=== PATIENT | female | born 1965 | race Caucasian/White ===

== ENCOUNTER 2017-12-23 18:12 | Emergency (ER) | payer OTHER ==
[~2017-12-23] VITALS: Ht 160 cm; Wt 64.2 kg
[~2017-12-23 18:12] MED LIST: DIPH25CA65 PO
[2017-12-23 18:16] VITALS: TEMP 36.5; Ht 160 cm; Wt 64.2 kg
[2017-12-23] MEDS ORDERED: PROPARACAINE HCL 0.5% OP SOLN 15 ML BTL OP STA (18:26)
--- NOTE | 2017-12-23 18:31 | EMERGENCY ROOM VISIT NOTE ---
ED Visit Note First contact with patient: 18:20 CHIEF COMPLAINT: Left eye irritation and watering HISTORY OF PRESENT ILLNESS: This 52-year-old female patient presents to the emergency department, ambulatory, complaining of pain and foreign body sensation in the left eye. She states symptoms began approximately 3 weeks ago. She thought she may have gotten something in her eye, but was uncertain. She states she tried OTC eye wash and rinse without improvement in her symptoms. She then used an ymuo-yzd-iwopqpy medication for styes, and states her symptoms improved for approximately 1 week. She states now, the symptoms have returned. She does have foreign body sensation with mild injection and tearing of the left eye. She does feel that the left eyelid is swollen. She did report noticing a stye at one point of the upper eyelid. She states her vision is not affected, however it feels blurry due to the tearing. She does not have an winderman, and has not seen a primary care provider regarding the problem. There has been a constant moderate pain and irritation, redness and tearing in the eye. The patient does not wear contacts. The patient rates the pain as 5/10. The patient has not had previous injuries to this eye. Tetanus shot is up to date. REVIEW OF SYSTEMS: A 6 system review of systems was completed with positives and pertinent negatives listed in the HPI. ALLERGIES: None MEDICATIONS: None PMH: None SOCIAL HISTORY: The patient lives locally with family. She denies drug and alcohol use. She admits to smoking one half pack of cigarettes per day. PHYSICAL EXAM: Vital Signs: Reviewed Nurse's notes, vital signs stable. Visual acuity 20/40 bilaterally. GENERAL: This is a 52-year-old white female, in no acute distress, but who is uncomfortable from the eye problem. Well-developed well-nourished. EYES: The pupils are equal round and reactive to light and accommodation. EOMs are full and without tenderness. There is a erythematous, irritated hordeolum on the lower lid in the middle of the lid. There is watery discharge from the left eye which is injected. There is no abrasion visible on the cornea. There is no foreign body visible under the eyelid after lid eversion. No foreign body was seen embedded in the cornea under slit lamp exam. The cornea was clear and no hyphema was seen. Fluorescein uptake was observed with ultraviolet light and significant for corneal abrasion or increased uptake of the eye. EMERGENCY DEPARTMENT COURSE: I examined the patient. Alcaine 2 drops were placed in the patient's left eye. A slit lamp exam was performed as above. No foreign body noted on examination. There is a stye-like lesion in the mid-lower lid with no active drainage. I suspect this is the cause of the irritation and FB sensation. the patient will be started on erythromycin antibiotic ointment and was provided the medication here in the ED. Discharge instructions reviewed. The patient was discharged home in good condition. I attest that I have personally reviewed the patient's current medication list. Patient was found to have normal blood pressure on screening and does not require follow-up. Etiologies such as hordeolum, blepharitis, conjunctivitis, corneal abrasion, uveitis, glaucoma, periorbital cellulitis, orbital cellulitis, abscess, trauma, as well as others were entertained. DIAGNOSIS: Stye with conjunctival irritation Current/Historical Medications No Active Prescriptions or Reported Meds Allergies Coded Allergies: No Known Allergies (Verified , 01/30/11) Vital Signs Date Time Temp Pulse Resp B/P (MAP) Pulse Ox O2 Delivery O2 Flow Rate FiO2 12/23/17 18:16 36.5 82 20 132/78 95 Room Air Departure Information Impression Primary Impression: Hordeolum Additional Impression: Conjunctival irritation Dispostion Home / Self-Care Condition GOOD Prescriptions No Active Prescriptions or Reported Meds Referrals No Doctor, Assigned (PCP) Corwin Haddad D.O. Patient Instructions ED Sandra, [facility] Additional Instructions You have been treated in the Emergency Department today for your a stye with conjunctival irritation of the left eye. You have been prescribed Erythromycin Opthalmic ointment. This is an antibiotic ointment which will help prevent an infection from developing in your affected eye. You should apply a 1 cm ribbon of the ointment to the lower part of the affected eye up to 6 times per day for the next 7-10 days. For pain control, you can use the following fpun-han-dqyrmtl medicines (if >12 yo): Ibuprofen(Motrin, Advil) may be used for fever or pain. Use 600mg every six hours as needed. Take with food. Avoid using more than 2400mg in a 24 hour period. Do not use 2400mg per day for more than three consecutive days without physician direction. Prolonged inappropriate use can lead to stomach upset or ulcers. (AND/OR) Acetaminophen(Tylenol) may be used for fever or pain. Use 1000mg every six hours as needed. Avoid using more than 3000mg in a 24 hour period. *Alternate these medications every 3-4 hours for increased pain control. You should relax in a quiet, dark place for the rest of the day. You should wear sunglasses while outside for the next few days until your eyes are not as sensitive to the light. You should schedule a follow-up appointment in 2-3 days with your Primary Care Provider or established Eye Doctor (Passenger Representative) for further evaluation and treatment of your hordeolum and irritation. You have been provided the contact information for a local winderman. Return to the Emergency Department if your current symptoms worsen despite treatment course outlined above, or if you develop any of the following symptoms : intractable pain, visual disturbances, loss of vision, increased redness, swelling, drainage, or if you develop a fever. Problem Qualifiers Primary Impression: Hordeolum Hordeolum type: externum Laterality: left Eyelid: lower Qualified Codes: H00.015 - Hordeolum externum left lower eyelid
[2017-12-23] MEDS ORDERED: ERYTHROMYCIN OP OINT 1 GM PKT OP STA (18:51)
[2017-12-23 19:13] VITALS: BP 130/74; PULSE 78; O2SAT 96
--- NOTE | 2017-12-24 12:14 | Pharmacy Progress Note ---
ED Pharmacist Progress Note Date of Service: Dec 24, 2017. Patient had called requesting Rx for Erythromycin Ophthalmic Ointment. She was discharged from the ED with a 1gm packet which likely was not enough to complete the intended 7-10 days of therapy instructed by Pamella Go. Reviewed with Dr Rodrigez. Rx for E-mycin Ophthalmic Oint 3.5gm tube, apply 1cm to lower part of affected eye up to 6 x daily x 7-10 days total called to [facility] [place] [phone] per patient's request.
== END 2017-12-23 19:14 | disposition home or self-care (01) ==
LOC: C.EDB 18:13 → C.EDD 19:14
DX: H00.015 Hordeolum externum left lower eyelid (principal); F17.210 Nicotine dependence, cigarettes, uncomplicated

== ENCOUNTER 2021-10-15 09:37 | Inpatient (IN) ==
--- NOTE | 2021-10-15 10:31 | XRay Report ---
XR chest 1V portable HISTORY: 55 years-old Female SOB acute shortness of breath with fever. COVID Positive. COMPARISON: Chest radiograph 10/13/2021 TECHNIQUE: Portable AP view of the chest FINDINGS: Cardiomediastinal and hilar silhouettes are within normal limits. The lungs are mildly hyperinflated. No pneumothorax, pleural effusion, or overt pulmonary edema. Minimal right lung base opacities are n ew from prior. Bones of the chest appear grossly intact. IMPRESSION: Minimal right lung base opacities are suggestive of atelectasis versus developing pneumon itis. ACT 112: Negative or not required by law. The above report was generated using voice recognition software. It may contain grammatical, syntax o r spelling errors. Electronically signed by: Malick Montaño M.D. 10/15/2021 10:30 AM
[2021-10-15] MEDS ORDERED: SODIUM CHLORIDE 0.9% 1000ML 500 ML IV ONE (10:54)
[2021-10-15] MEDS ORDERED: ALBUT/IPRATROP 3MG/0.5MG NEB 3 ML VIAL INH STA (10:54)
[2021-10-15] MEDS ORDERED: dexAMETHasone**PF** 10 MG/ML VIAL IV ONE (10:54)
--- NOTE | 2021-10-15 11:00 | Emergency Department Note ---
Impression & Plan Hypoxia, SOB (shortness of breath), Pneumonia, COVID-19 ED Provider Note NAME: DARIAN FERREIRA AGE: 55 SEX: F : 1965 ARRIVES VIA: Walk-In INFORMANT: [Patient] ED PROVIDER(S): [Cali Boyd MD] CHIEF COMPLAINT: Short of breath HISTORY OF PRESENT ILLNESS: The patient is a 55-year-old female who presents to the ER with dyspnea. The patient began feeling ill with flulike symptoms about 8 days ago. She tested positive for COVID-19 on the . The patient was seen in this ED 2 days ago and received monoclonal antibodies. She was not hypoxic and was discharged. The patient presented today complaining of increasing shortness of breath in the last 48 hours. She felt herself breathing rapidly. She felt awful in general. The patient is coughing, her fever has resolved, she still has some chills. Initially, earlier in this illness, the patient had a sore throat, fever, chills, body aches and a cough. She lost her taste and smell. The patient is not vaccinated for COVID-19 or influenza. Her is currently hospitalized with COVID-19. REVIEW OF SYSTEMS: See HPI for pertinent positives and negatives. A total of ten systems were reviewed and were otherwise negative. PMHx/PSHx: See Below SOCIAL HISTORY: See Below. PHYSICAL EXAM: GENERAL: Patient is in no acute distress. HEENT: No acute trauma, normocephalic atraumatic, mucous membranes moist, no nasal congestion, no scleral icterus. NECK: No stridor, no adenopathy, no meningismus, trachea is midline. LUNGS: Diminished breath sounds bilaterally, no wheezing or rhonchi. Breath sounds equal. HEART: Mildly tachycardic, regular rhythm, no murmurs. ABDOMEN: Soft, nontender, bowel sounds positive, no hernias, no peritonitis. EXTREMITIES: No cyanosis or edema, full range of motion of all the joints without pain or difficulty, no signs for acute trauma. NEUROLOGIC: Oriented x 3, no acute motor or sensory deficits, no focal weakness. SKIN: No rash, no jaundice, no diaphoresis. DIFFERENTIAL DIAGNOSIS: Reactive airway disease, pneumonia, pneumothorax, COVID-19, influenza, pneumonia, exacerbation of COPD, CHF, infection, cardiac ischemia, pulmonary embolism, bronchitis, musculoskeletal, gastrointestinal, as well as other pathologies. EMERGENCY DEPARTMENT COURSE/PROCEDURES: ECG: Indication was shortness of breath. The ECG shows a normal sinus rhythm with a rate of 89, there is no ST ovation, no PVCs. The QTc is 420. Continuous Cardiac Monitoring: An order was placed for continuous cardiac monitoring. The monitor shows a rate of 109 with sinus tachycardia. Critical Care Note: I have personally spent 51 minutes of critical care time in the direct management of this patient. This includes bedside care, interpretation of diagnostic studies, and testing, discussion with consultants, patient, and family members, and other required patient management activities. This 51 minutes is in excess of all separately billable procedures. MEDICAL DECISION MAKING: There is a moderate leukocytosis of 18,000, this could be consistent with the stress of her presentation or infection. There is no anemia. There is a normal platelet count. No coagulopathy. No significant electrolyte abnormality or kidney failure. No concerning liver enzyme elevation. C-reactive protein was elevated. Procalcitonin level was normal. ECG shows a normal sinus rhythm. Cardiac enzyme testing x1 is not consistent with acute cardiac injury. Chest x- ray does show what appears to be a right lower lung pneumonia. No pneumothorax, no CHF. On exam, the patient was hypoxic without O2 supplementation. The patient received IV saline for hydration. She was given IV Decadron. The patient received a DuoNeb. The patient presents hypoxic and short of breath. She has Covid pneumonia. She also has a history of smoking and likely has a component of COPD. Patient is improved with oxygen supplementation, a DuoNeb and the steroid inj ection. Given the hypoxia, a hospital stay is warranted. I did speak with the patient and case management. The on-call hospitalist was consulted. Past Med/Surg History Medical History No pertinent past medical history Surgical History History of tubal ligation Family History Father Diabetes Hypertension Cancer Mother Hypertension Grandmother (Maternal) Breast cancer Denies family history of Ovarian cancer Prostate cancer Myocardial infarction Colorectal cancer Social History Smoking Status: Former smoker packs per day: 1.5; Smoking End Date: 10/06/21; Hx Alcohol Use: No Hx Substance Use: No Preferred Language: Lebanese Chefs Required: No Beliefs That Will Affect Care: None marital status: Current Living Situation: Spouse current occupational status: employed Other Information That Helps Us Care for You: No Feels Safe at Home: Yes Safety Concerns: Feels Safe At This Time Dental Care, Regularly: No Assistive Devices: Denture - Upper, Denture - Lower, Glasses, Oxygen - at Night and Oxygen - Continuous Assistive Devices Comment: O2 is acute Allergies Allergies Allergy/AdvReac Type Severity Reaction Status Date / Time No Known Allergies Allergy Unknown Verified 10/15/21 11:04 Home Meds Home Medications Medication Instructions Recorded Confirmed No Known Home Medications 10/15/21 10/15/21 Results & Data (ED) Vital Signs Vital Signs - 24 hr 10/15/21 09:56 10/15/21 10:38 10/15/21 10:40 Temperature 37.4 C Temperature Source Temporal Artery Scan Pulse Rate 109 H 87 86 Pulse Rate [Finger] Pulse Rate from SpO2 Sensor 87 86 Pulse Rhythm Regular Pulse Strength Normal Respiratory Rate 24 25 H 25 H Respiratory Effort / Characteristics Spontaneous Accessory Muscle Use Short of Breath SOB on Exertion Respiratory Depth Normal Respiratory Pattern Tachypnea Blood Pressure 129/88 Blood Pressure [Left Arm] Blood Pressure Mean 101 Blood Pressure Mean [Left Arm] Blood Pressure Position Sitting Pulse Oximetry 89 L 97 95 Oxygen Delivery Method Room Air Nasal Cannula Nasal Cannula Oxygen Flow Rate 3 3 Sepsis Recent Fever Within 48 Hours No Sepsis New/Unexplained Change in Mental Status No Sepsis Action Taken by Nursing No Action Required 10/15/21 10:50 10/15/21 11:00 10/15/21 11:01 Temperature Temperature Source Pulse Rate 87 82 Pulse Rate [Finger] Pulse Rate from SpO2 Sensor 89 84 Pulse Rhythm Pulse Strength Respiratory Rate 20 20 Respiratory Effort / Characteristics Respiratory Depth Respiratory Pattern Blood Pressure 126/75 Blood Pressure [Left Arm] Blood Pressure Mean 92 Blood Pressure Mean [Left Arm] Blood Pressure Position Pulse Oximetry 95 97 96 Oxygen Delivery Method Nasal Cannula Nasal Cannula Nasal Cannula Oxygen Flow Rate 3 3 3 Sepsis Recent Fever Within 48 Hours Sepsis New/Unexplained Change in Mental Status Sepsis Action Taken by Nursing 10/15/21 11:02 10/15/21 11:10 10/15/21 11:20 Temperature Temperature Source Pulse Rate 92 H 85 Pulse Rate [Finger] Pulse Rate from SpO2 Sensor 95 H 85 Pulse Rhythm Pulse Strength Respiratory Rate 29 H 21 Respiratory Effort / Characteristics Respiratory Depth Respiratory Pattern Blood Pressure Blood Pressure [Left Arm] Blood Pressure Mean Blood Pressure Mean [Left Arm] Blood Pressure Position Pulse Oximetry 97 95 96 Oxygen Delivery Method Nasal Cannula Nasal Cannula Oxygen Flow Rate 3 2 Sepsis Recent Fever Within 48 Hours Sepsis New/Unexplained Change in Mental Status Sepsis Action Taken by Nursing 10/15/21 11:30 10/15/21 11:34 10/15/21 11:40 Temperature Temperature Source Pulse Rate 87 100 H Pulse Rate [Finger] 82 Pulse Rate from SpO2 Sensor 87 103 H Pulse Rhythm Pulse Strength Respiratory Rate 27 H 18 17 Respiratory Effort / Characteristics Respiratory Depth Respiratory Pattern Blood Pressure 131/79 Blood Pressure [Left Arm] 131/79 Blood Pressure Mean 96 Blood Pressure Mean [Left Arm] 96 Blood Pressure Position Pulse Oximetry 95 97 96 Oxygen Delivery Method Nasal Cannula Nebulizer Nasal Cannula Oxygen Flow Rate 2 2 Sepsis Recent Fever Within 48 Hours Sepsis New/Unexplained Change in Mental Status Sepsis Action Taken by Nursing 10/15/21 11:50 10/15/21 12:00 10/15/21 12:10 Temperature Temperature Source Pulse Rate 99 H 90 87 Pulse Rate [Finger] Pulse Rate from SpO2 Sensor 98 H 90 87 Pulse Rhythm Pulse Strength Respiratory Rate 15 24 23 Respiratory Effort / Characteristics Respiratory Depth Respiratory Pattern Blood Pressure Blood Pressure [Left Arm] Blood Pressure Mean Blood Pressure Mean [Left Arm] Blood Pressure Position Pulse Oximetry 90 96 96 Oxygen Delivery Method Nasal Cannula Nasal Cannula Nasal Cannula Oxygen Flow Rate 2 2 2 Sepsis Recent Fever Within 48 Hours Sepsis New/Unexplained Change in Mental Status Sepsis Action Taken by Nursing 10/15/21 12:20 10/15/21 12:30 10/15/21 12:40 Temperature Temperature Source Pulse Rate 93 H 98 H 92 H Pulse Rate [Finger] Pulse Rate from SpO2 Sensor 95 H 95 H 92 H Pulse Rhythm Pulse Strength Respiratory Rate 30 H 24 16 Respiratory Effort / Characteristics Respiratory Depth Respiratory Pattern Blood Pressure 134/80 Blood Pressure [Left Arm] Blood Pressure Mean 98 Blood Pressure Mean [Left Arm] Blood Pressure Position Pulse Oximetry 95 94 97 Oxygen Delivery Method Nasal Cannula Nasal Cannula Nasal Cannula Oxygen Flow Rate 2 2 2 Sepsis Recent Fever Within 48 Hours Sepsis New/Unexplained Change in Mental Status Sepsis Action Taken by Nursing 10/15/21 12:50 10/15/21 13:00 10/15/21 13:10 Temperature Temperature Source Pulse Rate 86 110 H 90 Pulse Rate [Finger] Pulse Rate from SpO2 Sensor 87 89 Pulse Rhythm Pulse Strength Respiratory Rate 26 H 31 H 28 H Respiratory Effort / Characteristics Respiratory Depth Respiratory Pattern Blood Pressure Blood Pressure [Left Arm] Blood Pressure Mean Blood Pressure Mean [Left Arm] Blood Pressure Position Pulse Oximetry 94 92 Oxygen Delivery Method Nasal Cannula Nasal Cannula Nasal Cannula Oxygen Flow Rate 2 2 2 Sepsis Recent Fever Within 48 Hours Sepsis New/Unexplained Change in Mental Status Sepsis Action Taken by Nursing 10/15/21 13:20 Temperature Temperature Source Pulse Rate 92 H Pulse Rate [Finger] Pulse Rate from SpO2 Sensor 92 H Pulse Rhythm Pulse Strength Respiratory Rate 13 Respiratory Effort / Characteristics Respiratory Depth Respiratory Pattern Blood Pressure Blood Pressure [Left Arm] Blood Pressure Mean Blood Pressure Mean [Left Arm] Blood Pressure Position Pulse Oximetry 93 Oxygen Delivery Method Nasal Cannula Oxygen Flow Rate 2 Sepsis Recent Fever Within 48 Hours Sepsis New/Unexplained Change in Mental Status Sepsis Action Taken by Group Home Medications Current Medication List: was personally reviewed by me Laboratory Data Attestation: I reviewed the patient's lab results. Result diagrams: 10/15/21 11:30 10/15/21 11:30 Lab Results 10/15/21 10/15/21 10/15/21 Range/Units 11:30 11:30 11:30 WBC 18.77 H (4.8-10.8) K/uL RBC 4.75 (4.2-5.4) M/uL Hgb 13.7 (12.0-16.0) g/dL Hct 40.5 (37-47) % MCV 85.3 (80-100) fL MCH 28.8 (25-34) pg MCHC 33.8 (32-36) g/dL RDW Std Deviation 42.1 (36.4-46.3) fL RDW Coeff of Aly 13.6 (11.5-14.5) % Plt Count 378 (130-400) K/uL MPV 9.1 (7.4-10.4) fL Immature Gran % (Auto) 0.6 % Neut % (Auto) 80.7 % Lymph % (Auto) 10.7 % Posey % (Auto) 7.8 % Eos % (Auto) 0.0 % Baso % (Auto) 0.2 % Neut # (Auto) 15.17 H (1.4-6.5) K/uL Lymph # (Auto) 2.00 (1.2-3.4) K/uL Posey # (Auto) 1.46 H (0.11-0.59) K/uL Eos # (Auto) 0.00 (0-0.5) K/uL Baso # (Auto) 0.03 (0-0.2) K/uL Immature Gran # (Auto) 0.11 H (0.00-0.02) K/uL PT 10.9 (9.0-12.0) Seconds INR 1.1 (0.9-1.1) APTT 26.4 (21.0-31.0) Seconds PTT Ratio 1.0 Sodium 135 L (136-145) mmol/L Potassium 4.1 (3.5-5.1) mmol/L Chloride 103 (98-107) mmol/L Carbon Dioxide 25 (21-32) mmol/L Anion Gap 7.0 (3-11) BUN 12 (7-18) mg/dl Creatinine 0.64 (0.6-1.2) mg/dl Est Cr Clr Drug Dosing 81.2 ml/min Est GFR ( Amer) 115.6 ml/min Est GFR (Non-Af Amer) 99.8 ml/min BUN/Creatinine Ratio 19.4 (10-20) Glucose 100 H (70-99) mg/dl Calcium 9.2 (8.5-10.1) mg/dl Magnesium 2.2 (1.8-2.4) mg/dl Total Bilirubin 0.3 (0.2-1) mg/dl AST 16 (15-37) U/L ALT 17 (12-78) Alkaline Phosphatase 84 (45-117) U/L Troponin I < 0.015 (0-0.045) ng/ml C-Reactive Protein 14.50 H (0-0.29) mg/dl Total Protein 7.8 (6.4-8.2) gm/dl Albumin 3.0 L (3.4-5.0) gm/dl Globulin 4.8 H (2.5-4.0) gm/dl Albumin/Globulin Ratio 0.6 L (0.9-2) Procalcitonin (0-0.5) ng/ml 01/01/22 Range/Units 11:30 WBC (4.8-10.8) K/uL RBC (4.2-5.4) M/uL Hgb (12.0-16.0) g/dL Hct (37-47) % MCV (80-100) fL MCH (25-34) pg MCHC (32-36) g/dL RDW Std Deviation (36.4-46.3) fL RDW Coeff of Aly (11.5-14.5) % Plt Count (130-400) K/uL MPV (7.4-10.4) fL Immature Gran % (Auto) % Neut % (Auto) % Lymph % (Auto) % Posey % (Auto) % Eos % (Auto) % Baso % (Auto) % Neut # (Auto) (1.4-6.5) K/uL Lymph # (Auto) (1.2-3.4) K/uL Posey # (Auto) (0.11-0.59) K/uL Eos # (Auto) (0-0.5) K/uL Baso # (Auto) (0-0.2) K/uL Immature Gran # (Auto) (0.00-0.02) K/uL PT (9.0-12.0) Seconds INR (0.9-1.1) APTT (21.0-31.0) Seconds PTT Ratio Sodium (136-145) mmol/L Potassium (3.5-5.1) mmol/L Chloride (98-107) mmol/L Carbon Dioxide (21-32) mmol/L Anion Gap (3-11) BUN (7-18) mg/dl Creatinine (0.6-1.2) mg/dl Est Cr Clr Drug Dosing ml/min Est GFR ( Amer) ml/min Est GFR (Non-Af Amer) ml/min BUN/Creatinine Ratio (10-20) Glucose (70-99) mg/dl Calcium (8.5-10.1) mg/dl Magnesium (1.8-2.4) mg/dl Total Bilirubin (0.2-1) mg/dl AST (15-37) U/L ALT (12-78) Alkaline Phosphatase (45-117) U/L Troponin I (0-0.045) ng/ml C-Reactive Protein (0-0.29) mg/dl Total Protein (6.4-8.2) gm/dl Albumin (3.4-5.0) gm/dl Globulin (2.5-4.0) gm/dl Albumin/Globulin Ratio (0.9-2) Procalcitonin 0.16 (0-0.5) ng/ml Administered Medications Discontinued Medications Albuterol (Albut/Ipratrop 3mg/0.5mg Neb 3 Ml Vial) 3 ml INH NOW STA Stop: 10/15/21 10:55 Last Admin: 10/15/21 11:29 Dose: 3 ml Documented by: [id number] Dexamethasone Sodium Phosphate (DexamethasonePf 10 Mg/Ml Vial) 6 mg IV NOW ONE Stop: 10/15/21 10:55 Last Admin: 10/15/21 11:29 Dose: 6 mg Documented by: [id number] Sodium Chloride (Nss 1000ml) 500 mls @ 999 mls/hr IV .Q31M ONE Stop: 10/15/21 11:24 Last Infusion: 10/15/21 12:30 Dose: 0 mls/hr Documented by: [id number] Admin: 10/15/21 11:29 Dose: 999 mls/hr Documented by: [id number] Azithromycin 500 mg/ Dextrose 255 mls @ 125 mls/hr IV 1330 ONE Stop: 10/15/21 15:32 Last Infusion: 10/15/21 16:38 Dose: 0 mls/hr Documented by: [id number] Admin: 10/15/21 14:28 Dose: 125 mls/hr Documented by: [id number] Remdesivir 200 mg/ Sodium (Chloride) 250 mls @ 125 mls/hr IV ONE STA; Protocol Stop: 10/15/21 15:25 Last Admin: 10/15/21 16:38 Dose: 125 mls/hr Documented by: [id number] Imaging Data Radiologist's Impression: Chest X-Ray 10/15/21 10:02 XR chest 1V portable HISTORY: 55 years-old Female SOB acute shortness of breath with fever. COVID Positive. COMPARISON: Chest radiograph 10/13/2021 TECHNIQUE: Portable AP view of the chest FINDINGS: Cardiomediastinal and hilar silhouettes are within normal limits. The lungs are mildly hyperinflated. No pneumothorax, pleural effusion, or overt pulmonary edema. Minimal right lung base opacities are new from prior. Bones of the chest appear grossly intact. IMPRESSION: Minimal right lung base opacities are suggestive of atelectasis versus developing pneumonitis. ACT 112: Negative or not required by law. The above report was generated using voice recognition software. It may contain grammatical, syntax or spelling errors. Electronically signed by: Malick Montaño M.D. 10/15/2021 10:30 AM Discharge Plan Visit Data Chief Complaint: Shortness of Breath/Dyspnea Stated Complaint: TROUBLE BREATHING,LIPS DRY,SX WORSENING,CHILLS ED Provider: Cali Boyd Discharge Problem: Hypoxia, SOB (shortness of breath), Pneumonia, COVID-19 Patient Disposition: Admitted As Inpatient Condition: Fair Discharge Instructions Interventions: ED Discharge Assessment Last Done: 10/15/21 17:06
[2021-10-15 11:42] LABS: Basophils # (auto) 0.03 K/uL (0-0.2); Basophils % (auto) 0.2 %; Hematocrit (blood only) 40.5 % (37-47); Hemoglobin 13.7 g/dL (12.0-16.0); Immature Granulocytes # (auto) 0.11 K/uL (0.00-0.02); Immature Granulocytes % (auto) 0.6 %; Lymphocytes % (auto) 10.7 %; Mean Corpuscular Hemoglobin 28.8 pg (25-34); Mean Corpuscular Hgb Conc 33.8 g/dL (32-36); Mean Corpuscular Volume 85.3 fL (80-100); Mean Platelet Volume 9.1 fL (7.4-10.4); Monocytes # (auto) 1.46 K/uL (0.11-0.59); Monocytes % (auto) 7.8 %; Neutrophils # (auto) 15.17 K/uL (1.4-6.5); Neutrophils % (auto) 80.7 %; Platelet Count 378 K/uL (130-400); RDW Coefficient of Variation 13.6 % (11.5-14.5); RDW Standard Deviation 42.1 fL (36.4-46.3); Red Blood Count 4.75 M/uL (4.2-5.4); White Blood Count 18.77 K/uL (4.8-10.8)
[2021-10-15 11:54] LABS: INR 1.1 (0.9-1.1); Partial Thromboplastin Time 26.4 Seconds (21.0-31.0); Prothrombin Time 10.9 Seconds (9.0-12.0)
[2021-10-15 12:02] LABS: Alanine Aminotransferase 17 (12-78); Aspartate Aminotransferase 16 U/L (15-37); BUN Creatinine Ratio 19.4 (10-20); Blood Urea Nitrogen 12 mg/dl (7-18); Calcium 9.2 mg/dl (8.5-10.1); Carbon Dioxide 25 mmol/L (21-32); Chloride 103 mmol/L (98-107); Creatinine Clr Calc Pharmacy 81.2 ml/min; Est GFR (African American) 115.6 ml/min; Est GFR (Non-African American) 99.8 ml/min; Glucose 100 mg/dl (70-99); Magnesium 2.2 mg/dl (1.8-2.4); Potassium 4.1 mmol/L (3.5-5.1); Sodium 135 mmol/L (136-145)
[2021-10-15 12:08] LABS: Albumin Globulin Ratio 0.6 (0.9-2); Alkaline Phosphatase 84 U/L (45-117); Bilirubin,Total 0.3 mg/dl (0.2-1); Globulin 4.8 gm/dl (2.5-4.0); Total Protein 7.8 gm/dl (6.4-8.2); Troponin I < 0.015 ng/ml (0-0.045)
[2021-10-15] MEDS ORDERED: REMDESIVIR 200 MG in SODIUM CHLORIDE 0.9% 210 ML IV STA (13:26)
[2021-10-15] MEDS ORDERED: AZITHROMYCIN 500 MG in DEXTROSE 5% 250 ML IV ONE (13:30)
--- NOTE | 2021-10-15 13:42 | History & Physical Report ---
Date of Service October 15, 2021 Assessment & Plan (1) COVID: Plan: COVID 19 day 8 with likely bacterial co-infection - Day 8 unvaccinated - Remdisivir x5 days - Decadron 6mg IV daily- low threshold to increase- if she were to meet criteria for baracitnib or Tocilizumab- will need to decrease back to 6mg IV daily - Oxygen support - NC/HFNC/CPAP/BIPAP- currently does not want intubated if she would need - Start Azithromycin 500mg IV x1 and then 250mgo IV daily - CRP 14 - PCT 0.15 - Fibrinogen/LDH/Ferritin pending - Self rotational therapy - Albuterol neb scheduled x24 horus (2) Hypoxia: Plan: Multifactorial - COVID, likely bacterial co-infection, COPD undiagnosed likely - increase in sputum production and oxygen use, CXR bilateral opacities- can't rule out above - As above - Albuterol neb x24 hours (3) Smoker: Plan: Stopped when she got ill- declines nicotine patch at this time (4) Leukocytosis: Plan: As above - likely co-infection - blood culture pending - sputum culture pending (5) DVT prophylaxis: Plan: Lovenox 30mg Subq q12- she is 55kg - Diet Regular - med tele - follow oxygneation requirements History of Present Illness Primary Care Provider: Laurence Pelaez MD 55 YOF with past medical history of: Current smoker, concussion, COVID. Patient orginial onset of symptoms were approximately 8 days ago, she had her initial COVID test on [id number] and received monoclonal antibodies x1. Patient comes in today for increase in dyspnea at home, increase in cough, increase in sputum production, fever, and fatigue. She was noted to be hypoxic to 88% on room air. Patient is not on any inhalers at home and is also not vaccinated. She has noticed that over the past 48 hours her cough and sputum has gotten worse, she has been producing thick yellow or brown sputum and this has changed from the beginning of her illness where it was clear. She has an elevated WBC count, NLR elevated, CRP increased to 14.5 and PCT 0.16. Patient was placed on 2LNC and is doing well at this time. She also reports some chest tightness and back discomfort, her ECG reveals no acute dynamic changes and her Troponin I is negative. The back pain is between her shoulder blades and is reproducible and gets worse with coughing. Patient will be admitted for continued steroids, nebulizer x24 hours, remdisivir therapy. She is currently not a candidate for baricitinib secondary to supplemental O2 at current 2LNC. She is unsure of her code status at this time, but for now would like to be a DNR/DNI- She would continue to make decisions based off of her clinical status and need. Allergies Allergy/AdvReac Type Severity Reaction Status Date / Time No Known Allergies Allergy Unknown Verified 10/15/21 11:04 Home Medications Medication Instructions Recorded Confirmed Type No Known Home Medications 10/15/21 10/15/21 History Past Med/Surg History Medical History No pertinent past medical history Surgical History History of tubal ligation Family History Father Diabetes Hypertension Cancer Mother Hypertension Grandmother (Maternal) Breast cancer Denies family history of Ovarian cancer Prostate cancer Myocardial infarction Colorectal cancer Social History Smoking Status: Former smoker packs per day: 1.5; Smoking End Date: 10/06/21; Hx Alcohol Use: No Hx Substance Use: No Preferred Language: Bengali Public Relations Coordinator Required: No Beliefs That Will Affect Care: None marital status: Current Living Situation: Spouse current occupational status: employed Other Information That Helps Us Care for You: No Feels Safe at Home: Yes Safety Concerns: Feels Safe At This Time Dental Care, Regularly: No Assistive Devices: Denture - Upper, Denture - Lower, Glasses, Oxygen - at Night and Oxygen - Continuous Assistive Devices Comment: O2 is acute Review of Systems Review of Systems: REVIEW OF SYSTEMS: Constitutional: (+) fever, sweats or chills Eyes: No diplopia, no worsening or blurred vision ENT: normal hearing, no trouble swallowing Respiratory: (+) cough, sputum, dyspnea at rest or on exertion Cardiovascular: (+) tightness, No chest pain, or palpitations Abdomen: No pain, nausea, vomiting, diarrhea or constipation Musculoskeletal: (+) joint pain, calf pain, swelling Neurologic: No weakness, numbness/tingling, or balance problems Psychiatric: No anxiety or depression Skin: No rash or itch Physical Exam Physical Exam: PHYSICAL EXAM: General: awake, alert, no apparent distress Head: Normocephalic, atraumatic ENT: PERRL, EOMI, no pharyngeal exudate, mucous membranes moist Neuro: AAO x 3, speech clear and appropriate, strength intact bilaterally 5/5, sensation intact and equal all extremities and dermatomes, no pronator drift Chest: equal rise and fall of the chest, tahcypneic, scattered rhonchi throughout, expiratory wheeze bilaterall Cardiac: Regular rate and rhythm, telemetry reviewed- NSR, skin warm dry, cap refill <3 seconds, peripheral pulses +2 no JVD, no murmur, no edema GI: NABS x 4 quadrants, soft, nontender to palpation, no rebound, guarding or tenderness : Spontaneously voiding, no pain, no CVA tenderness, Extremities: Normal inspection, no peripheral edema or erythema, calfs nontender to palpation Psych: Normal mood and affect Skin: no rash or erythema Results & Data Results & Data ([facility]) Vital Signs (Past 12 Hours) Vital Signs Temp Pulse Pulse Resp BP BP Pulse Ox 10/15/21 13:00 110 H 31 H 10/15/21 12:50 86 26 H 94 10/15/21 12:40 92 H 16 97 10/15/21 12:30 98 H 24 134/80 94 10/15/21 12:20 93 H 30 H 95 10/15/21 12:10 87 23 96 10/15/21 12:00 90 24 96 10/15/21 11:50 99 H 15 90 10/15/21 11:40 100 H 17 96 10/15/21 11:34 82 18 131/79 97 10/15/21 11:30 87 27 H 131/79 95 10/15/21 11:20 85 21 96 10/15/21 11:10 92 H 29 H 95 10/15/21 11:02 97 10/15/21 11:01 96 10/15/21 11:00 82 20 126/75 97 10/15/21 10:50 87 20 95 10/15/21 10:40 86 25 H 95 10/15/21 10:38 87 25 H 97 10/15/21 09:56 37.4 C 109 H 24 129/88 89 L Laboratory Results Abnormal lab results 10/15/21 10/15/21 Range/Units 11:30 11:30 WBC 18.77 H (4.8-10.8) K/uL Neut # (Auto) 15.17 H (1.4-6.5) K/uL [place] # (Auto) 1.46 H (0.11-0.59) K/uL Immature Gran # (Auto) 0.11 H (0.00-0.02) K/uL Sodium 135 L (136-145) mmol/L Glucose 100 H (70-99) mg/dl C-Reactive Protein 14.50 H (0-0.29) mg/dl Albumin 3.0 L (3.4-5.0) gm/dl Globulin 4.8 H (2.5-4.0) gm/dl Albumin/Globulin Ratio 0.6 L (0.9-2) Diagnostic Findings Chest X-Ray 10/15/21 10:02 XR chest 1V portable HISTORY: 55 years-old Female SOB acute shortness of breath with fever. COVID Positive. COMPARISON: Chest radiograph 10/13/2021 TECHNIQUE: Portable AP view of the chest FINDINGS: Cardiomediastinal and hilar silhouettes are within normal limits. The lungs are mildly hyperinflated. No pneumothorax, pleural effusion, or overt pulmonary edema. Minimal right lung base opacities are new from prior. Bones of the chest appear grossly intact. IMPRESSION: Minimal right lung base opacities are suggestive of atelectasis versus developing pneumonitis. ACT 112: Negative or not required by law. The above report was generated using voice recognition software. It may contain grammatical, syntax or spelling errors. Electronically signed by: Malick Montaño M.D. 10/15/2021 10:30 AM Medications Administered Home Medications No Known Home Medications 10/15/21 [History Confirmed 10/15/21] Active Medications Azithromycin 500 mg/ Dextrose 255 mls @ 125 mls/hr IV 1330 ONE Stop: 10/15/21 15:32 Remdesivir 200 mg/ Sodium (Chloride) 250 mls @ 125 mls/hr IV ONE STA; Protocol Stop: 10/15/21 15:25 ECG Additional Comments: Normal sinus rhythm Normal ECG When compared with ECG of 23-DEC-2007 12:10, Vent. rate has increased BY 30 BPM Code Status & VTE Plan Code Status CODE: DNR/DNI VTE: SCDs, Lovenox 30mg sq BID VTE Prophylaxis Plan VTE Prophylaxis will be ordered: Yes Supervising Physician Co-Signing Physician Notes Attending note: patient seen and examined with KRISTI Ugarte. I agree with his history, ROS, examination, assessment and plan. I personally reviewed labs and imaging. patient with COVID pneumonia, her is currently hospitalized she is slightly hypoxic at rest and meets requirements for admission - COVID 19 pneumonia: acute hypoxic respiratory failure, infiltrates on CXR treat with dexamethasone, Remdesivir, Zithromax titrate oxygen CRP is quite high, repeat in two days if down to room air she can go home PG Care Time/CCT Total # of Minutes Spent Total Time Spent with Patient: Total time spent is greater than 50% in coordination of care (as documented) at patient's floor/unit and/or counseling patient: Coding Level of Care Code 64576 Initial Inpt Care Lvl 3 Diagnoses COVID U07.1 Smoker F17.200 Hypoxia R09.02 DVT prophylaxis Z29.9 Leukocytosis D72.829
[2021-10-15 14:55] LABS: Ferritin 473.1 ng/ml (8-388)
[2021-10-15] MEDS ORDERED: ONDANSETRON INJ 2 MG/ML 2 ML VIAL IV PRN (18:16)
[2021-10-15] MEDS ORDERED: ACETAMINOPHEN 325 MG TAB PO PRN (18:16)
[2021-10-15] MEDS ORDERED: SODIUM CHLORIDE 0.9% 10ML FLUSH IV SCH (19:00)
[2021-10-15 19:52] LABS: Fibrinogen 645 mg/dl (184-400)
[2021-10-15] MEDS: ALBUTEROL 0.083% NEBU SOLN 3 ML VIAL NEB SCH (20:30)
[2021-10-15] MEDS: ENOXAPARIN INJ 30 MG/0.3 ML SYR SQ SCH (21:00)
--- NOTE | 2021-10-15 21:27 | Electrocardiogram Report ---
Test Reason : Blood Pressure : / mmHG Vent. Rate : 089 BPM Atrial Rate : 089 BPM P-R Int : 122 ms QRS Dur : 064 ms QT Int : 346 ms P-R-T Axes : 073 066 075 degrees QTc Int : 420 ms Poor data quality, interpretation may be adversely affected Normal sinus rhythm Normal ECG When compared with ECG of 23-DEC-2007 12:10, Vent. rate has increased BY 30 BPM Confirmed by Rhys Jessica ([id number]) on 10/15/2021 9:27:39 PM Referred By: Confirmed By:Rhys Jessica
[2021-10-16] MEDS: ALBUTEROL 0.083% NEBU SOLN 3 ML VIAL NEB SCH ×2 (01:23→07:53)
[2021-10-16 05:55] LABS: Basophils # (auto) 0.02 K/uL (0-0.2); Basophils % (auto) 0.1 %; Hematocrit (blood only) 36.4 % (37-47); Hemoglobin 12.2 g/dL (12.0-16.0); Immature Granulocytes # (auto) 0.09 K/uL (0.00-0.02); Immature Granulocytes % (auto) 0.7 %; Lymphocytes # (auto) 1.79 K/uL (1.2-3.4); Mean Corpuscular Hemoglobin 28.7 pg (25-34); Mean Corpuscular Hgb Conc 33.5 g/dL (32-36); Mean Corpuscular Volume 85.6 fL (80-100); Mean Platelet Volume 9.1 fL (7.4-10.4); Monocytes # (auto) 1.19 K/uL (0.11-0.59); Monocytes % (auto) 8.6 %; Neutrophils # (auto) 10.68 K/uL (1.4-6.5); Neutrophils % (auto) 77.6 %; Platelet Count 413 K/uL (130-400); RDW Coefficient of Variation 13.7 % (11.5-14.5); Red Blood Count 4.25 M/uL (4.2-5.4); White Blood Count 13.77 K/uL (4.8-10.8)
[2021-10-16 06:23] LABS: BUN Creatinine Ratio 25.1 (10-20); Calcium 9.1 mg/dl (8.5-10.1); Creatinine Clr Calc Pharmacy 86.6 ml/min; Est GFR (African American) 118.1 ml/min; Est GFR (Non-African American) 101.9 ml/min; Magnesium 2.4 mg/dl (1.8-2.4); Potassium 3.9 mmol/L (3.5-5.1)
[2021-10-16] MEDS ORDERED: ALBUTEROL 0.083% NEBU SOLN 3 ML VIAL NEB PRN (08:21)
[2021-10-16] MEDS: ENOXAPARIN INJ 30 MG/0.3 ML SYR SQ SCH ×2 (08:21→20:23)
[2021-10-16] MEDS: dexAMETHasone 6 MG in SYRINGE 0 ML IV SCH (08:22)
[2021-10-16] MEDS: SODIUM CHLORIDE 0.9% 10ML FLUSH IV SCH (13:27)
[2021-10-16] MEDS: REMDESIVIR 100 MG in SODIUM CHLORIDE 0.9% 230 ML IV SCH (13:27)
[2021-10-16] MEDS: PANTOprazole 40 MG in SYRINGE 0 ML IV SCH (13:27)
--- NOTE | 2021-10-16 14:33 | Hospitalist Progress Note ---
Date of Service October 16, 2021 Assessment & Plan (1) COVID: Plan: COVID 19 day 8 on admission with possible bacterial co-infection unvaccinated dexamethasone 6mg IV daily, change to PO on discharge to complete 10 days Remdesivir IV daily, continue while here, if stable on room air can be discharged Zithromax 250mg IV daily, day 2, change to PO on discharge to complete 5 days CRP 14 on admission, repeat tomorrow procalcitonin was 0.15 and BNP normal flutter valve, incentive spirometer 2 step tomorrow as she is doing well on room air today plan for discharge tomorrow, her will likely go home as well (2) Hypoxia: Plan: Multifactorial - COVID, likely bacterial co-infection, COPD undiagnosed likely - increase in sputum production and oxygen use, CXR bilateral opacities- can't rule out above - stable on room air now, off of 2L will get 2 step tomorrow to see if she needs oxygen on exertion likely good for discharge tomorrow would recommend eventual follow up with pulmonology as she could have COPD, she is smoker (3) Smoker: Plan: Stopped when she got ill- declines nicotine patch at this time educated on importance of stopping (4) Leukocytosis: Plan: As above - likely co-infection - blood culture pending - sputum culture pending (5) DVT prophylaxis: Plan: Lovenox 30mg Subq q12- she is 55kg - Diet Regular - med tele Admission and Anticipated Discharge Date Admission Date: October 15, 2021 Subjective patient feeling a lot better since admission, steroids are working, down to room air at rest she has walked to the bathroom several times, good strength, does not get short of breath she says she is eating a lot better, drinking well no fever, has a cough with some sputum her is admitted in room with her Review of Systems Review of Systems: All systems reviewed & are unremarkable except as noted in Subjective Constitutional: no fever, no fatigue and no weakness Respiratory: + cough and + dyspnea; no dyspnea on exertion Gastrointestinal: no abdominal pain, no nausea, no vomiting, no constipation and no diarrhea/loose stools Physical Exam Physical Exam: General: well developed, thin female, no acute distress, comfortable Neck: supple, trachea midline, normal thyroid Lungs: clear to auscultation bilaterally, diminished overall, normal respiratory effort, no accessory muscle use, no distress, + cough Heart: regular S1 and S2, no murmur, peripheral pulses normal, capillary refill normal, no edema Abdomen: soft, NT, ND, + BS, no hepatomegaly, normal to percussion Extremities: normal in appearance, no cyanosis, no petechiae, strength is 5/5 bilaterally Neuro: awake, cooperative, moves all extremities, no focal motor deficits, CN II-XII intact, sensation in extremities intact, normal speech Skin: warm, dry, no rash, normal turgor Psych: Awake, alert oriented x 3, euthymic affect Results & Data Results & Data ([facility]) Vital Signs (Past 12 Hours) Vital Signs Temp Pulse Resp BP Pulse Ox 10/16/21 12:17 36.7 C 76 20 111/60 92 10/16/21 07:58 70 16 94 10/16/21 07:00 36.7 C 71 16 125/71 94 10/16/21 03:05 36.5 C 78 18 110/65 98 Laboratory Results Laboratory Results - last 24 hr 10/15/21 10/15/21 10/15/21 14:12 14:12 19:29 WBC RBC Hgb Hct MCV MCH MCHC RDW Std Deviation RDW Coeff of Aly Plt Count MPV Immature Gran % (Auto) Neut % (Auto) Lymph % (Auto) [place] % (Auto) Eos % (Auto) Baso % (Auto) Neut # (Auto) Lymph # (Auto) [place] # (Auto) Eos # (Auto) Baso # (Auto) Immature Gran # (Auto) Fibrinogen 645 H Sodium Potassium Chloride Carbon Dioxide Anion Gap BUN Creatinine Est Cr Clr Drug Dosing Est GFR ( Amer) Est GFR (Non-Af Amer) BUN/Creatinine Ratio Glucose POC Glucose Calcium Magnesium Ferritin 473.1 H Lactate Dehydrogenase 267 H NT-Pro-B Natriuret Pep 45 10/16/21 10/16/21 10/16/21 03:10 05:29 05:29 WBC 13.77 H RBC 4.25 Hgb 12.2 Hct 36.4 L MCV 85.6 MCH 28.7 MCHC 33.5 RDW Std Deviation 43.0 RDW Coeff of Aly 13.7 Plt Count 413 H MPV 9.1 Immature Gran % (Auto) 0.7 Neut % (Auto) 77.6 Lymph % (Auto) 13.0 [place] % (Auto) 8.6 Eos % (Auto) 0.0 Baso % (Auto) 0.1 Neut # (Auto) 10.68 H Lymph # (Auto) 1.79 [place] # (Auto) 1.19 H Eos # (Auto) 0.00 Baso # (Auto) 0.02 Immature Gran # (Auto) 0.09 H Fibrinogen Sodium 138 Potassium 3.9 Chloride 107 Carbon Dioxide 26 Anion Gap 5.0 BUN 15 Creatinine 0.60 Est Cr Clr Drug Dosing 86.6 Est GFR ( Amer) 118.1 Est GFR (Non-Af Amer) 101.9 BUN/Creatinine Ratio 25.1 H Glucose 113 H POC Glucose 151 H Calcium 9.1 Magnesium 2.4 Ferritin Lactate Dehydrogenase NT-Pro-B Natriuret Pep 10/16/21 10/16/21 07:21 11:44 WBC RBC Hgb Hct MCV MCH MCHC RDW Std Deviation RDW Coeff of Aly Plt Count MPV Immature Gran % (Auto) Neut % (Auto) Lymph % (Auto) [place] % (Auto) Eos % (Auto) Baso % (Auto) Neut # (Auto) Lymph # (Auto) [place] # (Auto) Eos # (Auto) Baso # (Auto) Immature Gran # (Auto) Fibrinogen Sodium Potassium Chloride Carbon Dioxide Anion Gap BUN Creatinine Est Cr Clr Drug Dosing Est GFR ( Amer) Est GFR (Non-Af Amer) BUN/Creatinine Ratio Glucose POC Glucose 104 H 132 H Calcium Magnesium Ferritin Lactate Dehydrogenase NT-Pro-B Natriuret Pep Medications Administered Current Inpatient Medications Acetaminophen (Acetaminophen 325 Mg Tab) 650 mg PO Q4H PRN PRN Reason: Pain or Fever Stop: 11/14/21 18:15 Albuterol (Albuterol 0.083% Nebu Soln 3 Ml Vial) 2.5 mg NEB Q6R PRN; Protocol PRN Reason: Shortness Of Breath Or Wheezing Stop: 11/14/21 18:59 Enoxaparin Sodium (Enoxaparin Inj 30 Mg/0.3 Ml Syr) 30 mg SQ Q12H [facility] Stop: 11/14/21 19:59 Last Admin: 10/16/21 08:21 Dose: 30 mg Documented by: Azithromycin 250 mg/ Dextrose 252.5 mls @ 125 mls/hr IV DAILY@1400 [facility] Stop: 10/23/21 13:59 Remdesivir 100 mg/ Sodium (Chloride) 250 mls @ 250 mls/hr IV Q24H [facility]; Protocol Stop: 10/19/21 12:59 Last Admin: 10/16/21 13:27 Dose: 250 mls/hr Documented by: Dexamethasone 6 mg/ Syringe 1.5 mls @ 1 mls/min IV QAM [facility] Stop: 11/15/21 08:59 Last Admin: 10/16/21 08:22 Dose: 1 mls/min Documented by: Pantoprazole Sodium 40 mg/ (Syringe) 10 mls @ 5 mls/min IV DAILY@1100 [facility] Stop: 11/15/21 10:59 Last Admin: 10/16/21 13:27 Dose: 5 mls/min Documented by: Ondansetron HCl (Ondansetron Inj 2 Mg/Ml 2 Ml Vial) 4 mg IV Q6H PRN PRN Reason: Nausea Stop: 11/14/21 18:15 Sodium Chloride (Sodium Chloride 0.9% 10ml Flush) 30 ml IV Q24H [facility] Stop: 10/19/21 13:01 Last Admin: 10/16/21 13:27 Dose: 30 ml Documented by: PG Care Time/CCT Total # of Minutes Spent Total Time Spent with Patient: Total time spent is greater than 50% in coordination of care (as documented) at patient's floor/unit and/or counseling patient: Coding Level of Care Code 65991 Subseq Hosp Care Lvl 2 Diagnoses COVID U07.1 Hypoxia R09.02 Smoker F17.200 Leukocytosis D72.829 DVT prophylaxis Z29.9
[2021-10-16] MEDS: AZITHROMYCIN 250 MG in DEXTROSE 5% 250 ML IV SCH (14:35)
[2021-10-17 06:34] LABS: Hematocrit (blood only) 37.8 % (37-47); Hemoglobin 12.7 g/dL (12.0-16.0); Mean Corpuscular Hemoglobin 28.7 pg (25-34); Mean Corpuscular Hgb Conc 33.6 g/dL (32-36); Mean Corpuscular Volume 85.5 fL (80-100); Mean Platelet Volume 9.4 fL (7.4-10.4); Platelet Count 450 K/uL (130-400); RDW Coefficient of Variation 13.8 % (11.5-14.5); Red Blood Count 4.42 M/uL (4.2-5.4); White Blood Count 17.76 K/uL (4.8-10.8)
[2021-10-17 07:07] LABS: Basophils # (auto) 0.04 K/uL (0-0.2); Basophils % (auto) 0.2 %; Immature Granulocytes # (auto) 0.12 K/uL (0.00-0.02); Immature Granulocytes % (auto) 0.7 %; Lymphocytes # (auto) 2.63 K/uL (1.2-3.4); Lymphocytes % (auto) 14.8 %; Monocytes # (auto) 1.06 K/uL (0.11-0.59); Neutrophils # (auto) 13.91 K/uL (1.4-6.5); Neutrophils % (auto) 78.3 %
[2021-10-17 07:20] LABS: BUN Creatinine Ratio 29.5 (10-20); C Reactive Protein 7.84 mg/dl (0-0.29); Calcium 9.3 mg/dl (8.5-10.1); Creatinine Clr Calc Pharmacy 81.2 ml/min; Est GFR (African American) 115.6 ml/min; Est GFR (Non-African American) 99.8 ml/min; Magnesium 2.7 mg/dl (1.8-2.4)
[2021-10-17] MEDS: ENOXAPARIN INJ 30 MG/0.3 ML SYR SQ SCH ×2 (08:29→19:49)
[2021-10-17] MEDS: dexAMETHasone 6 MG in SYRINGE 0 ML IV SCH (08:30)
--- NOTE | 2021-10-17 08:55 | Hospitalist Progress Note ---
Date of Service October 17, 2021 Assessment & Plan (1) COVID: Plan: COVID 19 day 8 on admission with possible bacterial co-infection unvaccinated considering in the booster when she recovers dexamethasone 6mg IV daily, change to PO on discharge to complete 10 days Remdesivir IV daily, continue while here, if stable on room air can be discharged Zithromax 250mg IV daily, last dose will be October 19 CRP 14 on admission, down to 7 on 10/17/21 procalcitonin was 0.15 and BNP normal flutter valve, incentive spirometer 2 step tomorrow 10/17 shows her not to need oxygen however she is extremely fatigued and does not feel she did well at home she was discharged today (2) Hypoxia: Plan: Multifactorial - COVID, likely bacterial co-infection, COPD undiagnosed likely - increase in sputum production and oxygen use, CXR bilateral opacities- can't rule out above would recommend eventual follow up with pulmonology as she could have COPD, she is smoker and likely has some breathlessness that is her baseline (3) Smoker: Plan: Stopped when she got ill- declines nicotine patch at this time Counseled on importance of stopping (4) Leukocytosis: Plan: As above - likely co-infection - blood culture no growth to date (5) DVT prophylaxis: Plan: Lovenox 30mg Subq q12- she is 55kg - Diet Regular - med tele Admission and Anticipated Discharge Date Admission Date: October 15, 2021 Subjective pt feels too weak to consider going home, is now on room air, she likely has some baseline COPD and may continue to have some breathless ness, her is going home today but she does not feel she would be able to go home Review of Systems Review of Systems: Moderate distress and fatigue no headache, no visual changes no speech or swallowing issues no chest pain, pressure or palpitations Continue shortness of breath, nonproductive cough or wheezes no abdominal pain, nausea or vomiting, no diarrhea no dysuria, hematuria or frequency no focal joint pain or swelling no back pain, CVA tenderness or radicular pain no bruising, bleeding or rashes no focal signs of weakness or numbness or altered sensation no complaints of anxiety or depression.. Physical Exam Physical Exam: The patient appeared mild to moderate respiratory distress Vital signs as documented. Head exam is normocephalic atraumatic Neck is without JVD, thyromegaly, or carotid bruits. Lungs are coarse bilaterally in all lung desir tachypnea Cardiac exam, Rhythm is regular.. No murmurs, rubs or gallops. Abdominal exam reveals normal bowel sounds, soft non tender, no masses Extremities are nonedematous and both pedal pulses are present Neurologic exam is alert and oriented, no focal loss of strength or sensation Skin is without bruises or rashes Psychologically is without concerns for anxiety or depression.. Results & Data Results & Data ([facility]) Vital Signs (Past 12 Hours) Vital Signs Temp Pulse Pulse Resp BP BP Pulse Ox 10/17/21 07:54 97.9 F 66 17 118/76 90 10/17/21 02:59 63 20 133/74 95 10/16/21 23:09 97.9 F 60 20 109/57 L 94 10/16/21 22:19 57 L PG Care Time/CCT Total # of Minutes Spent Total Time Spent with Patient: Total time spent is greater than 50% in coordination of care (as documented) at patient's floor/unit and/or counseling patient: Coding Level of Care Code 62855 Subseq Hosp Care Lvl 2 Diagnoses COVID U07.1 Hypoxia R09.02 Smoker F17.200 Leukocytosis D72.829 DVT prophylaxis Z29.9
[2021-10-17] MEDS: PANTOprazole 40 MG in SYRINGE 0 ML IV SCH (11:03)
[2021-10-17] MEDS: REMDESIVIR 100 MG in SODIUM CHLORIDE 0.9% 230 ML IV SCH (11:03)
[2021-10-17] MEDS: AZITHROMYCIN 250 MG in DEXTROSE 5% 250 ML IV SCH (12:20)
[2021-10-17] MEDS: SODIUM CHLORIDE 0.9% 10ML FLUSH IV SCH (12:21)
[2021-10-18 07:14] LABS: Basophils # (auto) 0.02 K/uL (0-0.2); Basophils % (auto) 0.1 %; Hematocrit (blood only) 39.2 % (37-47); Hemoglobin 13.1 g/dL (12.0-16.0); Immature Granulocytes # (auto) 0.17 K/uL (0.00-0.02); Immature Granulocytes % (auto) 1.2 %; Lymphocytes # (auto) 2.91 K/uL (1.2-3.4); Lymphocytes % (auto) 21.1 %; Mean Corpuscular Hemoglobin 28.5 pg (25-34); Mean Corpuscular Hgb Conc 33.4 g/dL (32-36); Mean Corpuscular Volume 85.2 fL (80-100); Mean Platelet Volume 9.1 fL (7.4-10.4); Monocytes % (auto) 9.4 %; Neutrophils # (auto) 9.42 K/uL (1.4-6.5); Neutrophils % (auto) 68.2 %; Platelet Count 521 K/uL (130-400); RDW Coefficient of Variation 13.5 % (11.5-14.5); RDW Standard Deviation 42.5 fL (36.4-46.3); White Blood Count 13.82 K/uL (4.8-10.8)
[2021-10-18 07:34] LABS: BUN Creatinine Ratio 32.3 (10-20); Calcium 8.5 mg/dl (8.5-10.1); Creatinine Clr Calc Pharmacy 82.5 ml/min; Est GFR (African American) 116.2 ml/min; Est GFR (Non-African American) 100.3 ml/min; Magnesium 2.3 mg/dl (1.8-2.4); Potassium 3.8 mmol/L (3.5-5.1)
[2021-10-18] MEDS: dexAMETHasone 6 MG in SYRINGE 0 ML IV SCH (08:37)
[2021-10-18] MEDS: ENOXAPARIN INJ 30 MG/0.3 ML SYR SQ SCH (08:37)
[2021-10-18] MEDS: REMDESIVIR 100 MG in SODIUM CHLORIDE 0.9% 230 ML IV SCH (11:06)
[2021-10-18] MEDS: PANTOprazole 40 MG in SYRINGE 0 ML IV SCH (11:06)
[2021-10-18] MEDS: AZITHROMYCIN 250 MG in DEXTROSE 5% 250 ML IV SCH (12:16)
[2021-10-18] MEDS: SODIUM CHLORIDE 0.9% 10ML FLUSH IV SCH (12:17)
--- NOTE | 2021-10-18 18:19 | Discharge Summary ---
Date of Service October 18, 2021 Admission HPI Per Admitting Provider 55 YOF with past medical history of: Current smoker, concussion, COVID. Patient orginial onset of symptoms were approximately 8 days ago, she had her initial COVID test on and received monoclonal antibodies x1. Patient comes in today for increase in dyspnea at home, increase in cough, increase in sputum production, fever, and fatigue. She was noted to be hypoxic to 88% on room air. Patient is not on any inhalers at home and is also not vaccinated. She has noticed that over the past 48 hours her cough and sputum has gotten worse, she has been producing thick yellow or brown sputum and this has changed from the beginning of her illness where it was clear. She has an elevated WBC count, NLR elevated, CRP increased to 14.5 and PCT 0.16. Patient was placed on 2LNC and is doing well at this time. She also reports some chest tightness and back discomfort, her ECG reveals no acute dynamic changes and her Troponin I is negative. The back pain is between her shoulder blades and is reproducible and gets worse with coughing. Patient will be admitted for continued steroids, nebulizer x24 hours, remdisivir therapy. She is currently not a candidate for baricitinib secondary to supplemental O2 at current 2LNC. She is unsure of her code status at this time, but for now would like to be a DNR/DNI- She would continue to make decisions based off of her clinical status and need. Principal Diagnosis covid pneumonia hypoxic respiratory failure resolved likley underlying copd tobacco abuse Discharge Exam The patient appeared well Vital signs as documented. Lungs are with poor air movement but have become clear Cardiac exam, Rhythm is regular.. No murmurs, rubs or gallops. Abdominal exam reveals normal bowel sounds, soft non tender, no masses Extremities are nonedematous and both pedal pulses are normal. Neurologic exam is alert and oriented, no focal loss of strength or sensation Skin is without bruises or rashes Psychologically is without concerns for anxiety or depression. Discharge Data Allergies Allergy/AdvReac Type Severity Reaction Status Date / Time No Known Allergies Allergy Unknown Verified 10/15/21 11:04 Consultations 10/15/21 13:00 ED Decision to Admit Stat 10/18/21 11:56 Consult [facility] training and development director Routine Hospital Course (1) COVID: COVID 19 day 8 on admission with possible bacterial co-infection unvaccinated considering in the booster when she recovers dexamethasone 6mg IV daily, change to PO on discharge Remdesivir IV daily, discontinued due to improved oxygen requirement Zithromax 250mg given while patient was in the hospital CRP 14 on admission, down to 7 on 10/17/21 procalcitonin was 0.15 and BNP normal 2 step 1 shows her not to need oxygen (2) Hypoxia: Multifactorial - COVID, likely bacterial co-infection, COPD undiagnosed likely now is resolved would recommend eventual follow up with pulmonology as she could have COPD, she is smoker and likely has some breathlessness that is her baseline (3) Smoker: Stopped when she got ill-patient prescribed nicotine patch and understands might not be covered by insurance Counseled on importance of stopping (4) Leukocytosis: - blood culture no growth to date Total Time Total Time Spent Total Time Spent (In Minutes): It required greater than 30 minutes to prepare this patient for discharge Discharge Plan Discharge Items Patient Disposition: Home - Self-Care Reason For Visit: covid 19, hypoxia Discharge Diagnosis: low oxygen level covid pneumonia Condition on Discharge: Fair Activity: Per Instructions section Activity Comment: slowly increase activity Non-emergency contact: Primary Care Provider and [facility]aster Call non-emergency contact if: your symptoms worsen and you have a fever Follow-up/Referrals: Laurence Pelaez MD [Primary Care Provider] - 10/27/21 11:30 am Diet: Regular Addtl Attending Provider Instructions: You have been diagnosed with covid infection, it would be recommended that you quarantine yourself for 10 days from your first test or first symptoms, and if at the 10th day you have no symptoms the you can come off quarantine but use common sense precautions. Quarantine means attempting to stay away from people who have not had an active covid infection in the past, and if you have to be around others to wear a mask even if you are indoors, do not share a room to sleep in with others until you are out of quarantine. If you still have symptoms at the 10th day, continue to quarantine until you are symptom free for 48 hours please work very hard to try to stop smoking in addition to seeing your primary care doctor be sure to have an appointment with a lung doctor (Hot Blaster) to continue to work to improve your breathing Pending Studies at Discharge: No Stand-Alone Forms: [facility], Work/School Release, Smoking Cessation Medications and DC Order Prescriptions: New dexamethasone [Decadron] 6 mg tablet 6 mg PO DAILY Qty: 7 RF: 0 nicotine [Nicoderm CQ] 21 mg/24 hr patch 24 hour 1 patch transdermal DAILY Qty: 14 RF: 0 Discharge Orders: Discharge Order (Routine); Ordered 10/18/21 Ordered By: Armando Freeman Admission Data Admit Date/Time: 10/15/21 13:26 Attending Provider: Armando Freeman Admit Provider: Mazin Roberts Primary Care Provider: Laurence Pelaez Other Providers: Mazin Roberts Other Interventions: Discharge Summary Assessment (RN) Last Done: 10/18/21 11:51 Coding Level of Care Code D/C DAY MANAGEMENT >30 MINS Diagnoses COVID U07.1 Hypoxia R09.02 Smoker F17.200 Leukocytosis D72.829
== END 2021-10-18 15:06 | disposition home or self-care (01) | DRG 177 ==
LOC: ED 09:37 → EDINP 13:26 → SUATTDRO 13:26 → 2W 17:06